=== PATIENT | male | born 1970 | race Two or more races ===

== ENCOUNTER 2017-02-16 05:56 | Emergency (ER) | payer SELFPAY ==
[2017-02-16 06:10] VITALS: BP 141/95
--- NOTE | 2017-02-16 07:32 | RADIOLOGY REPORT (SQ) ---
EXAM DESCRIPTION: CHEST PA/LAT COMPLETED DATE/TIME: 02/16/2017 7:16 am REASON FOR STUDY: cough COMPARISON: None. EXAM PARAMETERS: NUMBER OF VIEWS: two views TECHNIQUE: Digital Frontal and Lateral radiographic views of the chest acquired. RADIATION DOSE: NA LIMITATIONS: none FINDINGS: LUNGS AND PLEURA: No opacities, masses or pneumothorax. No pleural effusion. MEDIASTINUM AND HILAR STRUCTURES: No masses or contour abnormalities. HEART AND VASCULAR STRUCTURES: Heart normal size. No evidence for failure. BONES: No acute findings. HARDWARE: None in the chest. OTHER: No other significant finding. IMPRESSION: NO SIGNIFICANT RADIOGRAPHIC FINDING IN THE CHEST. TECHNICAL DOCUMENTATION: JOB ID: [id number] [employer]- All Rights Reserved
--- NOTE | 2017-02-16 07:40 | ER Document Report ---
ED General - General Chief Complaint: Sore Throat Stated Complaint: SORE THROAT Time Seen by Provider: 02/16/17 07:03 Mode of Arrival: Ambulatory Information source: Patient, Relative Notes: 46-year-old male presents with complaints of cough congestion right lateral neck pain. Patient denies any nausea vomiting notes epigastric burning sensation with fevers and sweating last night. Patient denies any actual chest pain TRAVEL OUTSIDE OF THE [place] IN LAST 30 DAYS: No - HPI Onset: Yesterday Onset/Duration: Sudden Quality of pain: Achy Severity: Mild Pain Level: 1 Associated symptoms: Fever, Shortness of breath Exacerbated by: Denies Relieved by: Denies Similar symptoms previously: No Recently seen / treated by doctor: No Past Medical History - Social History Smoking Status: Never Smoker Cigarette use (# per day): No Chew tobacco use (# tins/day): No Smoking Education Provided: No Family History: Reviewed & Not Pertinent Patient has suicidal ideation: No Patient has homicidal ideation: No Renal/ Medical History: Denies: Hx Peritoneal Dialysis Review of Systems - Review of Systems Notes: PHYSICAL EXAMINATION: GENERAL: Well-appearing, well-nourished and in no acute distress. HEAD: Atraumatic, normocephalic. EYES: Pupils equal round and reactive to light, extraocular movements intact, sclera anicteric, conjunctiva are normal. ENT: Nares patent, oropharynx clear without exudates. Moist mucous membranes. NECK: Normal range of motion, supple without lymphadenopathy LUNGS: Breath sounds clear to auscultation bilaterally and equal. No wheezes rales or rhonchi. HEART: Regular rate and rhythm without murmurs ABDOMEN: Soft, nontender, nondistended abdomen. No guarding, no rebound. No masses appreciated. Musculoskeletal: Normal range of motion, no pitting or edema. No cyanosis. NEUROLOGICAL: Cranial nerves grossly intact. Normal speech, normal gait. Normal sensory, motor exams PSYCH: Normal mood, normal affect. SKIN: Warm, Dry, normal turgor, no rashes or lesions noted. Physical Exam - Vital signs Vitals: Temp Pulse Resp BP Pulse Ox 98.9 F 72 20 141/95 H 97 02/16/17 06:04 02/16/17 06:04 02/16/17 06:04 02/16/17 06:04 02/16/17 06:04 Course - Re-evaluation Re-evalutation: 02/16/17 07:49 On physical examination patient has no bruits he notes only mild tenderness on palpation of the right lateral neck. There is no obvious signs of infection. A cardiac workup has been ordered given the neck pain the sweating last night and his vague epigastric abdominal pain. I have low suspicion for cardiac concerns that the patient is adamant that it is associated with cough and fever however he does also note that he intermittently will get chest pain has not had any chest pain today 02/16/17 09:47 Cardiac workup was negative. At this time patient appears stable for discharge. I will have patient follow-up with primary care physician and treat as a muscle spasm in his right lateral neck given that is not near any life- threatening organs After performing a Medical Screening Examination, I estimate there is LOW risk for CENTRAL CORD SYNDROME, EPIDURAL MASS LESION, SEVERE SPINAL STENOSIS, ARTERIAL DISSECTION, MENINGITIS, or ACUTE CORONARY SYNDROME, thus I consider the discharge disposition reasonable. I have reevaluated this patient multiple times and no significant life threatening changes are noted. The patient and I have discussed the diagnosis and risks, and we agree with discharging home to follow-up on an outpatient basis with the understanding that symptoms and presentations can change. We also discussed returning to the Emergency Department immediately if new or worsening symptoms occur. We have discussed the symptoms which are most concerning (e.g., saddle anesthesia, urinary or bowel incontinence or retention, changing or worsening pain) that necessitate immediate return. 02/16/17 09:48 - Vital Signs Vital signs: Temp Pulse Resp BP Pulse Ox 98.9 F 72 20 141/95 H 97 02/16/17 06:04 02/16/17 06:04 02/16/17 06:04 02/16/17 06:04 02/16/17 06:04 - Laboratory Result Diagrams: 02/16/17 08:05 02/16/17 08:05 Laboratory results interpreted by me: 02/16/17 08:05 Glucose 122 H - Diagnostic Test Radiology reviewed: Image reviewed, Reports reviewed - No acute abnormality - EKG Interpretation by Me EKG shows normal: Sinus rhythm, [place], Intervals, QRS Complexes Discharge - Discharge Clinical Impression: Neck pain, Chest congestion Condition: Stable Disposition: HOME, SELF-CARE Instructions: Sore Throat ([facility]) Prescriptions: Diazepam [Valium 5 mg Tablet] 5 mg PO QIDP PRN #15 tablet PRN Reason: Referrals: DK DEE MD [NO LOCAL MD] - Follow up tomorrow
[2017-02-16 08:18] LABS: ABSOLUTE EOSINOPHILS # (AUTO) 0.1 10^3/uL (0.0-0.6); ABSOLUTE LYMPHOCYTES (AUTO) 1.2 10^3/uL (0.5-4.7); ABSOLUTE MONOCYTES (AUTO) 0.4 10^3/uL (0.1-1.4); ABSOLUTE NEUT (AUTO) 3.4 10^3/uL (1.7-8.2); BASOPHILS % (AUTO) 0.6 % (0-2); HEMOGLOBIN 15.8 g/dL (13.5-17.0); HGB HCT DIFFERENCE 0.4; MEAN CORPUSCULAR HEMOGLOBIN 28.8 pg (27.0-33.4); MEAN CORPUSCULAR HGB CONC 33.7 g/dL (32.0-36.0); MEAN CORPUSCULAR VOLUME 85 fl (80-97); MONOCYTES % (AUTO) 6.9 % (3-13); RED CELL DISTRIBUTION WIDTH 13.9 % (11.5-14.0); SEGMENTED NEUTROPHILS % (AUTO) 66.5 % (42-78); WHITE BLOOD COUNT 5.2 10^3/uL (4.0-10.5)
[2017-02-16 08:38] LABS: ALANINE AMINOTRANSFERASE 61 U/L (21-72); ALBUMIN 4.6 g/dL (3.5-5.0); ALKALINE PHOSPHATASE 111 U/L (38-126); ANION GAP 11 (5-19); ASPARTATE AMINO TRANSFERASE 37 U/L (17-59); BILIRUBIN,DIRECT 0.3 mg/dL (0.0-0.4); BILIRUBIN,TOTAL 0.6 mg/dL (0.2-1.3); BLOOD UREA NITROGEN 13 mg/dL (7-20); CALCIUM 9.6 mg/dL (8.4-10.2); CARBON DIOXIDE 25 mmol/L (22-30); CHLORIDE 104 mmol/L (98-107); CREATINE KINASE 143 U/L (55-170); CREATININE RESULT 0.94 mg/dL (0.52-1.25); GLUCOSE 122 mg/dL (75-110); POTASSIUM 4.6 mmol/L (3.6-5.0); SODIUM 140.4 mmol/L (137-145); TOTAL PROTEIN 7.3 g/dL (6.3-8.2)
[2017-02-16 09:00] LABS: TROPONIN I < 0.012 ng/mL
[2017-02-16] MEDS ORDERED: KETOROLAC TROMETHAMINE 10 MG TABLET PO ONE (09:48)
--- NOTE | 2017-02-16 18:31 | EKG REPORT ---
SEVERITY:- BORDERLINE ECG - SINUS RHYTHM NONSPECIFIC ST-T CHANGES- INFERIOR LEADS : Confirmed by: Talha Burns MD 16-Feb-2017 18:29:24
== END 2017-02-16 10:37 | disposition home or self-care (01) ==
LOC: ER 05:56
DX: R09.89 Other specified symptoms and signs involving the circulatory and respiratory systems (principal); M54.2 Cervicalgia; R05 Cough; R50.9 Fever, unspecified; R61 Generalized hyperhidrosis; R06.02 Shortness of breath; R10.13 Epigastric pain
CPT/HCPCS: 93005; 99283; 36415; 87070; 82553; 87880; 82550; 85025; 80053; 84484; 71020; 93010; J3490